=== PATIENT | male | born 1995 ===

== ENCOUNTER 2022-02-19 18:45 | Emergency (ER) | payer SELFPAY ==
[~2022-02-19] VITALS: Ht 182.9 cm; Wt 0.9 kg
[2022-02-19 18:57] VITALS: BP 138/72
== END 2022-02-19 20:19 | disposition left against medical advice (07) ==
LOC: EMS 18:45
DX: Z53.21 Procedure and treatment not carried out due to patient leaving prior to being seen by health care provider (principal)
CPT/HCPCS: 71045; 93005